=== PATIENT | female | born 1945 | race American Indian/Alaskan Native ===

== ENCOUNTER 2019-07-17 11:34 | Emergency (ER) | payer MEDICARE, OTHER ==
[2019-07-17 13:01] VITALS: BP 182/102
[2019-07-17] MEDS ORDERED: IBUPROFEN 600 MG TAB PO ONE ×2 (13:03→13:06)
--- NOTE | 2019-07-17 14:28 | XRay Report ---
Left ankle-3 views INDICATION: pain and swelling r/t fall. COMPARISON: None. IMPRESSION: Comminuted bimalleolar fractures with moderate circumferential soft tissue swelling abou t the ankle. No significant DJD. Signer Name: Rubio Domínguez MD Signed: 07/17/2019 2:24 PM Workstation Name: [id number]
--- NOTE | 2019-07-17 15:04 | Emergency Department Report ---
HPI - General Chief Complaint: Extremity Injury, Lower Time Seen by Provider: 07/17/19 14:41 - HPI HPI: 74-year-old female presents to the emergency department from home with complaint of ankle pain and swelling after she tripped going down the steps at the last step and ended up rolling her foot and ankle. Since that time she has been unable to bear weight or ambulate. She has not taken anything for her symptoms prior to presentation. Denies any past medical history. ED Past Medical Hx - Past Medical History Previous Medical History?: No - Surgical History Past Surgical History?: No - Social History Smoking Status: Never Smoker Substance Use Type: None - Medications Home Medications: Home Medications Medication Instructions Recorded Confirmed Last Taken Type HYDROcodone/APAP 5-325 [Mobile 1 each PO Q6HR PRN #15 tablet 07/17/19 Unknown Rx 5/325] ED Review of Systems ROS: Stated complaint: LT ANKLE PAIN/FALL Other details as noted in HPI Comment: All other systems reviewed and negative Constitutional: denies: fever Respiratory: denies: shortness of breath Cardiovascular: denies: chest pain Gastrointestinal: denies: abdominal pain Musculoskeletal: joint swelling, arthralgia. denies: back pain Skin: denies: rash, lesions Neurological: denies: numbness, paresthesias Physical Exam - Physical Exam Vital Signs: Vital Signs 07/17/19 07/17/19 13:00 13:25 Temperature 98.2 F Pulse Rate 72 Respiratory 18 18 Rate Blood Pressure 182/102 O2 Sat by Pulse 100 Oximetry Physical Exam: GENERAL: The patient is well-developed well-nourished. HENT: Normocephalic. Atraumatic. Patient has moist mucous membranes. EYES: Extraocular motions are intact. NECK: Supple. Trachea is midline. ABDOMEN: There is no abdominal distention. SKIN: There is circumferential nonpitting swelling of the left ankle. NEURO: The patient is awake, alert, and oriented. The patient is cooperative. The patient has no focal neurologic deficits. Normal speech. MUSCULOSKELETAL: There is tenderness to palpation of the left ankle. Decreased range of motion of the left ankle and foot secondary to pain. +2 over 4 dorsalis pedis pulse of the left foot and capillary refill less than 2 seconds. ED Course Vital Signs 07/17/19 07/17/19 13:00 13:25 Temperature 98.2 F Pulse Rate 72 Respiratory 18 18 Rate Blood Pressure 182/102 O2 Sat by Pulse 100 Oximetry ED Medical Decision Making - Radiology Data Radiology results: image reviewed interpreted by me: X-ray of the left ankle shows a bimalleolar fracture. - Medical Decision Making Patient has a bimalleolar fracture after slipping down one of her stairs and rolling her foot and ankle. She is neurovascularly intact. She was placed in a 3 sided Jackson splint and given crutches. She was able to display the ability to use the crutches and remain nonweightbearing. She was given a prescription for some pain medication and a referral for orthopedics. She will return to the ER with any worsening of her symptoms or any acute distress. - Differential Diagnosis fracture, sprain, strain, contusion Critical Care Time: No Critical care attestation.: If time is entered above; I have spent that time in minutes in the direct care of this critically ill patient, excluding procedure time. ED Disposition Clinical Impression: Bimalleolar ankle fracture Qualifiers: Encounter type: initial encounter Fracture type: closed Laterality: left Qualified Code(s): S82.842A - Displaced bimalleolar fracture of left lower leg, initial encounter for closed fracture Disposition: DC-01 TO HOME OR SELFCARE Is pt being admited?: No Condition: Stable Instructions: Ankle Fracture (ED) Additional Instructions: Please follow-up with an orthopedist in a few days. Remain in the splint and nonweightbearing using crutches until follow-up with the orthopedist. Do not get the splint wet or it will dissolve. Return to the emergency Department with any worsening of your symptoms or any acute distress. You have been prescribed a medication that is sedating and therefore should not be taken prior to driving, working, and responsible for children and in no way should be mixed with alcohol of any quantity. Prescriptions: HYDROcodone/APAP 5-325 [Mobile 5/325] 1 each PO Q6HR PRN #15 tablet PRN Reason: Pain Referrals: TIANA CARL MD [Staff Physician] - 2-3 Days [facility] [Provider Group] - 2-3 Days Time of Disposition: 15:31
== END 2019-07-17 15:58 | disposition home or self-care (01) ==
LOC: ED 11:34
DX: S82.842A Displaced bimalleolar fracture of left lower leg, initial encounter for closed fracture (principal); Z79.899 Other long term (current) drug therapy; W18.40XA Slipping, tripping and stumbling without falling, unspecified, initial encounter; Y93.89 Activity, other specified; Y92.89 Other specified places as the place of occurrence of the external cause; Y99.8 Other external cause status